=== PATIENT | male | born 1955 | race Two or more races ===

== ENCOUNTER 2017-05-08 10:52 | Outpatient (RCR) | payer BC | END 2017-05-17 | disposition home or self-care (01) | LOC: WCC 10:52 | DX: L97.513 Non-pressure chronic ulcer of other part of right foot with necrosis of muscle (principal); E11.621 Type 2 diabetes mellitus with foot ulcer; E08.52 Diabetes mellitus due to underlying condition with diabetic peripheral angiopathy with gangrene; Z89.421 Acquired absence of other right toe(s); Z95.5 Presence of coronary angioplasty implant and graft; I10 Essential (primary) hypertension; Z88.8 Allergy status to other drugs, medicaments and biological substances; Z79.01 Long term (current) use of anticoagulants; Z79.4 Long term (current) use of insulin | CPT/HCPCS: 82962; G0277; G0463 ==

== ENCOUNTER 2017-05-18 11:27 | Outpatient (RCR) | payer BC | END 2017-06-14 | disposition home or self-care (01) | LOC: WCC 11:27 | DX: E11.621 Type 2 diabetes mellitus with foot ulcer (principal); L97.513 Non-pressure chronic ulcer of other part of right foot with necrosis of muscle; E08.52 Diabetes mellitus due to underlying condition with diabetic peripheral angiopathy with gangrene; I10 Essential (primary) hypertension; E11.9 Type 2 diabetes mellitus without complications; Z89.421 Acquired absence of other right toe(s); Z95.5 Presence of coronary angioplasty implant and graft; Z79.01 Long term (current) use of anticoagulants; Z79.4 Long term (current) use of insulin; Z88.8 Allergy status to other drugs, medicaments and biological substances | CPT/HCPCS: 82962; G0277 ==

== ENCOUNTER 2017-06-21 08:40 | Outpatient (RCR) | payer BC | END 2017-07-15 | disposition home or self-care (01) | LOC: WCC 08:40 | DX: E11.621 Type 2 diabetes mellitus with foot ulcer (principal); L97.513 Non-pressure chronic ulcer of other part of right foot with necrosis of muscle; E08.52 Diabetes mellitus due to underlying condition with diabetic peripheral angiopathy with gangrene | CPT/HCPCS: 82962; G0277 ==

== ENCOUNTER 2017-07-17 08:10 | Outpatient (RCR) | payer BC | END 2017-08-14 | disposition home or self-care (01) | LOC: WCC 08:10 | DX: L97.513 Non-pressure chronic ulcer of other part of right foot with necrosis of muscle (principal); E11.621 Type 2 diabetes mellitus with foot ulcer; E08.52 Diabetes mellitus due to underlying condition with diabetic peripheral angiopathy with gangrene; I10 Essential (primary) hypertension; Z79.01 Long term (current) use of anticoagulants; Z79.02 Long term (current) use of antithrombotics/antiplatelets | CPT/HCPCS: 82962; G0277 ==

== ENCOUNTER 2017-08-15 09:30 | Outpatient (RCR) | payer BC | END 2017-09-14 | disposition home or self-care (01) | LOC: WCC 09:30 | DX: E11.621 Type 2 diabetes mellitus with foot ulcer (principal); L97.513 Non-pressure chronic ulcer of other part of right foot with necrosis of muscle; E08.52 Diabetes mellitus due to underlying condition with diabetic peripheral angiopathy with gangrene; I10 Essential (primary) hypertension; Z95.5 Presence of coronary angioplasty implant and graft; Z79.01 Long term (current) use of anticoagulants; Z79.02 Long term (current) use of antithrombotics/antiplatelets | CPT/HCPCS: 82962; G0277 ==